=== PATIENT | male | born 1980 | race Caucasian/White ===

== ENCOUNTER 2016-08-18 15:09 | Emergency (ER) | payer OTHER ==
[2016-08-18 15:13] VITALS: BP 131/60; PULSE 81; TEMP 98.3; BMI 25.7
--- NOTE | 2016-08-18 15:22 | PDOC ---
History of Present Illness - General Chief Complaint: Injury Stated Complaint: FALL, ANKLE PAIN Time Seen by Provider: 08/18/16 15:18 History Source: Patient Exam Limitations: No Limitations - History of Present Illness Initial Comments: 08/18/16 15:41 Pt. is a 36 y/o male who presents to the ED c/o L ankle pain. Pt. states that he was working outside on a ladder. He was stepping down on the ladder when he missed a rung and twisted his ankle. Denies falling off of the ladder. He states his ankle is swollen and it hurts to bear weight on the L leg. Denies numbness, tingling, weakness of affected limb. Past History - Travel Traveled outside of the country in the last 30 days: No Close contact w/someone who was outside of country & ill: No - Past Medical History Allergies/Adverse Reactions: Allergies Allergy/AdvReac Type Severity Reaction Status Date / Time No Known Allergies Allergy Verified 08/18/16 15:11 Home Medications: Ambulatory Orders Oxycodone HCl/Acetaminophen [Percocet 5-325 mg Tablet] 1 tab PO Q6H #20 tablet MDD 4 08/18/16 - Psycho/Social/Smoking Cessation Hx Suicidal Ideation: No Smoking History: Never smoked Review of Systems - Review of Systems Able to Perform ROS?: Yes Is the patient limited Greek proficient: No Constitutional: No: Weakness *Physical Exam - Vital Signs Last Vital Signs Temp Pulse Resp BP Pulse Ox 98.3 F 81 18 131/60 98 08/18/16 15:11 08/18/16 15:11 08/18/16 15:11 08/18/16 15:11 08/18/16 15:11 - Physical Exam General Appearance: Yes: Nourished, Appropriately Dressed, Mild Distress (Pt. sitting in wheel chair with L foot elevated. AAOx3, breathing easily) Extremity: positive: Normal Capillary Refill, Tender (TTP over L lateral malleolus, L medial malleolus, L calcaneous). negative: Normal Range of Motion (Decreased ROM of L ankle on inversion and eversion. Flexion and extention ROM intact) Integumentary: positive: Normal Color, Dry, Warm, Swelling (L Lateral and L medial malleoli ). negative: Bruising Procedures - Splinting Splint Location: Left: Ankle Pre-Proc Neuro Vasc Exam: normal Hand-Made Type: orthoglass Splint Type: Yes: Posterior (L leg) Post-Proc Neuro Vasc Exam: normal, unchanged from pre-exam Brock Bandage: yes, 4" Complications: No Post splint xray: No Medical Decision Making - Medical Decision Making 08/18/16 15:48 Patient is a 36-year-old male with no past medical history who presents to the emergency department today complaining of left ankle pain. Patient missed a rung on a ladder and inverted his left ankle. He has point tenderness over his lateral and medial malleoli as well as swelling to the anterior lateral portion of the left foot. We'll obtain x-ray to rule out fracture at this time. We'll also give Motrin for pain. Reevaluate. 08/18/16 16:32 X-ray findings: Suspicious for fracture of the anterior lateral calcaneus. Possibly extending into the calcaneal cuboid joint, no dislocation is seen. There is dorsal spurring of the talar head. We will splint at this time. A posterior tibial splint is placed. See procedure note. Patient to be made nonweightbearing. Patient understands the importance of being non-weight bearing and will use his crutches at all times. Patient has follow-up with orthopedics. We will discharge home at this time with pain control (Percocet). He understands not to drive or operate heavy machinery after taking his Percocet. Patient understands all discharge instructions and all questions were answered at this time. *DC/Admit/Observation/Transfer Diagnosis at time of Disposition: Calcaneal fracture Qualifiers: Encounter type: initial encounter Calcaneus location: unspecified portion of calcaneus Fracture type: closed Fracture alignment: nondisplaced Laterality: left Qualified Code(s): S92.002A - Unspecified fracture of left calcaneus, initial encounter for closed fracture - Discharge Dispostion Admit: No - Prescriptions Prescriptions: Oxycodone HCl/Acetaminophen [Percocet 5-325 mg Tablet] 1 tab PO Q6H #20 tablet MDD 4 - Referrals Referrals: STAFF,NOT ON [Primary Care Provider] - Sergio Olivo MD [Staff Physician] - - Patient Instructions Printed Discharge Instructions: DI for Foot Fracture Additional Instructions: You broke a bone in your foot. You were placed in a splint today and given crutches. Use the crutches at all times, and do not bear weight on the foot. Do not get the splint wet. You may use percocet for pain. Follow up with orthopedics as soon as possible. You were given information for Dr. Olivo. Return to the ED if you have worsening pain in the foot or calf, develop fevers or chills, or have any other changes in your symptoms. - Post Discharge Activity Work/School Note: Back to Work
[2016-08-18] MEDS ORDERED: IBUPROFEN 600 MG TABLET (FP) PO ONE ×2 (15:35→15:52)
== END 2016-08-18 16:58 | disposition home or self-care (01) ==
LOC: JERFT 15:09
PROC: 2W3RX1Z Immobilization of Left Lower Leg using Splint (ICD-10-PCS; principal; 2016-08-18)
DX: S92.002A Unspecified fracture of left calcaneus, initial encounter for closed fracture (principal); X58.XXXA Exposure to other specified factors, initial encounter; Y93.89 Activity, other specified; Y92.9 Unspecified place or not applicable
CPT/HCPCS: 73610-TC-LT; 73630-TC-LT; 99281-25

== ENCOUNTER 2020-09-15 15:07 | Emergency (ER) | payer OTHER ==
[2020-09-15 15:20] VITALS: BP 141/80; PULSE 88; TEMP 97.9; BMI 27.1
[2020-09-15] MEDS ORDERED: IBUPROFEN 600 MG TABLET (FP) PO ONE ×2 (15:57→16:22)
== END 2020-09-15 18:45 | disposition home or self-care (01) ==
LOC: JERFT 15:07
DX: M25.512 Pain in left shoulder (principal)
CPT/HCPCS: 73030-TC-LT-FY; 99283-25